=== PATIENT | female | born 1980 | race African-American/Black ===

== ENCOUNTER 2018-07-07 06:46 | Emergency (ER) | payer SELFPAY ==
--- NOTE | 2018-07-07 07:23 | ER Document Report ---
ED Resuscitation - General Stated Complaint: UNRESPONSIVE Time Seen by Provider: 07/07/18 07:22 Notes: This is a 37-year-old -[place] female. Morbidly obese. EMS was called when patient was having "panic attack". When EMS arrived patient was alert but then stood up and became immediately unresponsive. A nasal airway was placed. Patient was being bagged on arrival to the emergency department. On arrival to the emergency department patient was unresponsive. Not breathing. Pupils fixed and dilated. No pulse. No blood pressure. Oxygen saturation 78% - HPI Witnessed arrest: Yes Onset: Just prior to arrival Severity: Severe Past Medical History - General Cannot obtain history due to: Intubated - Social History Smoking Status: Smoker,Current Status Unk Family History: Other - Unknown Review of Systems - Review of Systems -: Yes ROS unobtainable due to patient's medical condition Physical Exam - Vital signs Notes: Patient without palpable pulse, apneic and cyanotic - HEENT Head: Normocephalic, Atraumatic Pupils: Dilated, Fixed - Respiratory Notes: Patient has a nasal trumpet in place. No spontaneous respirations. - Cardiovascular Notes: She is without pulses in the bilateral carotids, bilateral upper extremities. No ausculatory heart sounds. - Abdominal Notes: Morbidly obese. No significant distention. No discernible bowel sounds. - Back Back: No: Deformity/step-off, Wounds - Extremities General upper extremity: Other - Patient has normal-appearing limbs bilaterally in the upper and lower extremities. Normal passive range of motion - Neurological Neuro grossly intact: No Notes: Pupils are fixed and dilated. No gag reflex present. GCS of 3 - Skin Skin Temperature: Cold Skin Moisture: Dry Notes: No obvious significant skin lesions present. Course - Re-evaluation Re-evalutation: 07/07/18 07:56 On arrival to the emergency department patient was immediately intubated with a 7.5 ET tube using the glide scope. IO was established in the right lower extremity. IV established in the left upper extremity. Multiple rounds of epinephrine were given. Bicarb was given. CPR was continued. Based on the possibility of massive saddle emboli thrombolytics were initiated. CPR was continued. There was a brief episode of fine V. fib. This was shocked with 200 J 2. CPR was continued. An amp of calcium gluconate given. Bedside ultrasound was available. No discernible cardiac activity was seen on ultrasound. No palpable pulses. After all potential treatments were entertained and performed the decision was made to stop CPR. Patient was in pulseless electrical activity shortly following that in asystole. Time of at 719 p.m. Family members were notified. 16-year-old son is the only family member present initially. Procedures - Intubation Orotracheal Airway evaluation: Normal anatomy Mallampati Classification: Class 2 Intubation method: Orotracheal Blade type: Wan Blade size: 3 Equipment used: Glidescope ETT size: 7.5 ETT secured at (cm): 22 Post Intubation Xray: No Intubation Complications: No complications Notes: 07/07/18 07:59 The ET tube was visualized passing through the cords with a glide scope. Color change in auscultation bilaterally with a stethoscope performed. Critical Care Note - Critical Care Note Total time excluding time spent on procedures (mins): 60 Comments: Managing resuscitation, consulting with family members, Discharge - Discharge Clinical Impression: Sudden cardiac arrest
[2018-07-07] MEDS ORDERED: EPINEPHRINE INJ 1 MG/10 ML DISP.SYRIN ONE (10:31)
[2018-07-07] MEDS ORDERED: SODIUM BICARBONATE 8.4% INJ 50 MEQ/50 ML DISP.SYRIN ONE (10:31)
[2018-07-07] MEDS ORDERED: TENECTEPLASE INJ 50 MG KIT IV ONE (20:29)
== END 2018-07-07 11:00 | disposition expired ==
LOC: ER 06:46
PROC: 0BH17EZ Insertion of Endotracheal Airway into Trachea, Via Natural or Artificial Opening (ICD-10-PCS; principal; 2018-07-07)
DX: I46.9 Cardiac arrest, cause unspecified (principal); F41.0 Panic disorder [episodic paroxysmal anxiety]; F17.200 Nicotine dependence, unspecified, uncomplicated
CPT/HCPCS: 99291; 92950; 96374; 96375; 31500; J3101; J0171; J3490